=== PATIENT | male | born 1990 | race Caucasian/White ===

== ENCOUNTER 2017-07-20 13:45 | Emergency (ER) | payer SELFPAY | END 2017-07-20 15:45 | disposition home or self-care (01) | LOC: D.ER 13:45 → EDSEX 13:45 → D.ER 15:45 | DX: S62.101A Fracture of unspecified carpal bone, right wrist, initial encounter for closed fracture (principal); W22.03XA Walked into furniture, initial encounter; Y93.89 Activity, other specified; Y92.010 Kitchen of single-family (private) house as the place of occurrence of the external cause; F17.200 Nicotine dependence, unspecified, uncomplicated ==